=== PATIENT | female | born 1965 | race Caucasian/White ===

== ENCOUNTER 2024-08-01 14:15 | Outpatient (AMB) | payer OTHER, SELFPAY ==
[2024-08-01 14:46] VITALS: BP 104/74; PULSE 115; RESP 19; TEMP 36.2; O2SAT 97; BMI 45.0
--- NOTE | 2024-08-01 14:46 | PD.ORTHCLVIS ---
Vital signs 08/01/24 14:46 Height 1.6 m Height Method Stated Weight 115.383 kg Weight Measurement Method Standing Scale BMI 45.0 BP 104/74 Blood Pressure Source Automatic Cuff Blood Pressure Location Right Upper Arm Position Sitting Respiration 19 Pulse 115 H Pulse Source Monitor Temp 97.2 F Temp Source Temporal Artery Scan Pulse Oximetry (%) 97 Oxygen Delivery Method Room Air Med/Allergies Allergies & Medications Allergies No Known Allergies Allergy (Unknown, Uncoded 08/01/24 14:48) Medication Reconciliation Unobtainable 06/15/23 [History Confirmed 08/01/24] Subjective Visit Visit for: follow up visit Immunization / Flu Flu Vaccine in the Last 12 Months: Yes Flu Vaccine Exclusion Criteria: Already Received History of Present Illness Chief complaint: 3 MONTH KNEE INJECTION Patient is a pleasant 57-year-old female with a BMI of 46.6 who presents today for follow-up of her right knee. We previously have been doing injections. She has had over 7 injections in each knee. She is not getting good relief with the injections anymore. She is failed conservative treatment including meloxicam, and over 7 injections. 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 Exam Exam Patient is in no acute distress and is cooperative with the examination today. Breathing is nonlabored. Patient has a normal mood and affect. The patient has a gait that is antalgic Bilateral extremities were evaluated and demonstrates sensation intact to light touch. Palpable pedal pulses are present. No significant edema is present. Bilateral hips were examined. The patient has no pain with log roll of the hips. Internal rotation to 30 degrees and external rotation to 30 degrees is painless. Negative FADIR. Left knee was examined today. The left knee is in reasonable alignment. Range of motion from 0-120 degrees. Knee is stable to varus and valgus as well as AP translation with <5mm. Patient has a negative McMurrays. There is no pain with patellofemoral compression and no crepitus noted. The knee is nontender to palpation. The right knee was also examined. The right knee is in neutral alignment. Range of motion from 5-1 10 degrees. Knee is stable to varus and valgus as well as AP translation with <5mm. Patient has a negative McMurrays. There is no pain with patellofemoral compression and no crepitus noted. The knee is tender to to palpation diffusely. X-rays were personally reviewed by me. Significant joint space narrowing is present medially. There is complete obliteration of the medial joint space Assessment and Plan Problem List (1) Arthritis of knee, right: Status: Acute Plan: Patient is a pleasant 57-year-old female with severe left knee osteoarthritis with a BMI of 45. We have asked her to lose weight to minimize for complications from surgery and she is lost 30 pounds. At this point, the pain is affecting her quality life and happiness. I thus consider total knee replacement is a reasonable option. Her right knee hurts more and we will thus start on the side. We will give her a left knee injection as well today. Will plan for surgery on the right side with a total knee replacement. She will need a cardiac clearance given her atrial fibrillation history that is apparently well-controlled The nature and purpose of the total knee replacement, alternative method(s) of treatment, the material risks involved, and the possibility of complications were fully explained to the patient. The patient does NOT have any of the following contraindications to TKA: - Active infection of the knee joint, OR - Active systemic bacteremia, OR - Active skin infection or open wound at surgical site, OR - Neuropathic arthritis, OR - Severe, rapidly progressive neurological disease, OR - Severe medical condition that makes risks of surgery outweigh the potential benefit The patient was told the most common risks and complications associated with a total knee replacement include, but are not limited to: blood clots in the leg, fatal pulmonary embolism, dislocation of the prosthesis, intraoperative and postoperative fractures of the femur or tibia, infection, failure of the prosthesis or grafting materials, complications from anesthesia, reactions to blood transfusions, postoperative leg length inequality, instability of the knee replacement, nerve damage or injury, vascular injury, delayed wound healing, infection, other injury or even . In addition, there are risks associated with anesthesia given during this operation. Also, the patient was told that after undergoing a total knee replacement there may still be persistent pain or disability. The patient was informed that the success of this operation in part depends upon the mechanical devices which are going to be implanted and that these devices can fail or malfunction, and may need to be repaired or replaced and there are no guarantees as to the longevity of this device or its parts and that it or its parts could fail prematurely. The patient was also notified that during the course of surgery, there may be a need to use bone graft from donors, and that any bone graft used will be carefully screened for communicable diseases, including AIDS, hepatitis, Christiano-Creutzfeldt, or other diseases, but despite the screening procedures, there is a small chance that they could contract one of these diseases. Finally, the patient was asked to follow completely and fully with all advice and recommended treatments, and that recovery and ultimate outcome are affected by their compliance with recommended treatment. We discussed the risks, benefits and treatment alternatives, and the patient is interested in proceeding with surgery. We will try to set this up as expeditiously as possible. Recommend knee cortisone injection as patient would like to proceed with conservative treatment at this time. The risks and benefits of the procedure were reviewed with the patient and patient gave verbal consent to continue with the procedure. Procedure: performed by Dr. Covarrubias Using sterile technique the left knee was thoroughly prepped with alcohol, and approximately 1 cc of Kenalog 40 mg/mL and 4 cc of 1% lidocaine was injected without resistance into the medial tibial femoral joint space. The patient tolerated the procedure. Peripheral weight 2 Office Procedures GNS Level of Care Nursing/Assessment Patient Status: Established Patient Nursing Assessment/Reassesment: Medication Reconciliation, Update PMH in EMR and Vital Signs Coordination of Care: Complex Care/Chronic Disease 5 or more, Education Complex Pt/Fam, Consent,records obtained, informed consent and Staff clarify orders Established Patient Charge Established Patient Point Assignment: 100 Established Patient Point Charge: EP Level 3 (80-115) Surgical Proc/IM SQ injection Major Surgical Procedure: Yes (KNEE INJECTION ) Past Medical History Past Medical History Have you ever been diagnosed with any of the following: Cardiology Problems Hypertension: No Respiratory Problems Smoking: No Smoking Cessation Counseling: No Smoking Exposure: No Tobacco Use: No
== END 2024-08-01 15:01 | disposition home or self-care (01) ==
LOC: HODSRG 14:15
PROVIDERS: PCP Family Medicine; Referring Provider Family Medicine; Supervising Provider Orthopaedic Surgery Adult Reconstructive Orthopaedic Surgery; Visit Provider Orthopaedic Surgery Adult Reconstructive Orthopaedic Surgery
DX: M17.0 Bilateral primary osteoarthritis of knee (principal)
CPT/HCPCS: 20610; 99213; J3301; J3490; G0463

== ENCOUNTER 2024-10-26 10:19 | Emergency (ER) | payer OTHER, SELFPAY ==
[2024-10-26] VITALS (11 sets, daily range): BP systolic 128–155; BP diastolic 79–96; PULSE 95–143; RESP 18–40; TEMP 36.2–36.9; O2SAT 94–100; BMI 45.7
--- NOTE | 2024-10-26 11:52 | EKG_ITS ---
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
--- NOTE | 2024-10-26 11:52 | XR_ITS ---
Examination: AP chest single view Technique one AP portable upright chest single view Exam date and time: October 26, 2024 1225 hours Comparison June 13, 2016 INDICATIONS: Chest pain shortness of breath today. FINDINGS: Normal heart size Retrocardiac gastric hernia No pneumonia or pulmonary edema Moderate osteopenia IMPRESSION: No pneumonia or pulmonary edema
--- NOTE | 2024-10-26 11:53 | PD.EDRME ---
Rapid Medical Screening Exam RME Arrival date/time: 10/26/24 10:19 59-year-old female presents to the emergency department with complaints of shortness of breath, history of A-fib has been sick for 1 week URI was sent over for x-ray possible pneumonia. I have greeted and performed a focused initial assessment of this patient. Initial appropriate labs ordered at this time. A comprehensive ED assessment and evaluation of the patient and analysis of all test and completion of medical decision making process will be conducted by additional ED provider. Chief Complaint: Shortness of Breath/Dyspnea Time Seen by Provider: 10/26/24 11:43
[2024-10-26] MEDS: LEVALBUTEROL RT 1.25 MG/0.5 ML NEBU INH (12:20)
[2024-10-26] MEDS: SODIUM CHLORIDE RT SOL 0.9% 3 ML NEBU INH ×2 (12:20→15:15)
[2024-10-26] MEDS: MethylPREDNISolone SOD SUCC 62.5 MG/ML 2ML VIAL 125 MG IVP (12:48)
[2024-10-26 13:21] LABS: Basophils # (Auto) 0.1 Thou/mm3 (0.0-0.2); Basophils % (Auto) 1 % (0-2.5); Eosinophils # (Auto) 0.2 Thou/mm3 (0.0-0.5); Eosinophils % (Auto) 2 % (0-10); Hematocrit 41.1 % (36.0-46.0); Hemoglobin 14.1 g/dL (12.0-16.0); Immature Granulocytes % (Auto) 1 % (0-0); Immature Granulocytes Auto 0.04 Thou/mm3 (0.00-0.00); Lymphocytes # (Auto) 3.2 Thou/mm3 (1.0-4.8); Lymphocytes % (Auto) 36 % (10-50); Mean Corpuscular HGB Conc 34.3 g/dl (31.0-37.0); Mean Corpuscular Hemoglobin 30.6 pg (25.0-35.0); Mean Corpuscular Volume 89 fL (80-100); Monocytes # (Auto) 0.6 Thou/mm3 (0.0-0.8); Monocytes % (Auto) 7 % (0-12); Neutrophils # (Auto) 4.7 Thou/mm3 (1.8-7.7); Neutrophils % (Auto) 54 % (37-80); Nucleated Red Blood Cell % 0 /100 WBC (0); Platelet Count 310 Thou/mm3 (140-440); RDW Standard Deviation 42.5 fL (36.4-46.3); Red Blood Count 4.61 Miln/mm3 (4.00-5.20); White Blood Count 8.8 Thou/mm3 (3.6-11.0)
[2024-10-26 13:40] LABS: Alanine Aminotransferase 19 U/L (10-49); Albumin, Serum 4.4 gm/dL (3.4-4.8); Albumin/Globulin Ratio 1.6 (1.2-2.2); Alkaline Phosphatase 89 U/L (46-116); Anion Gap 9 (7-16); Aspartate Amino Transferase 22 U/L (0-34); BUN/Creatinine Ratio 14 Ratio (12-20); Bilirubin,Total 0.7 mg/dL (0.3-1.2); Blood Urea Nitrogen 10 mg/dL (9-23); Calcium 11.6 mg/dL (8.3-10.6); Calcium (Corrected) 11.6 mg/dL (8.5-10.1); Carbon Dioxide 30.8 mMol/L (20.0-31.0); Chloride 100 mMol/L (98-107); Creatinine (Component) 0.7 mg/dL (0.6-1.3); Estimated Creatinine Clearance 101.8 mL/min (>60); Globulin 2.8 gm/dL (2.3-3.5); Glucose 90 mg/dL (74-106); Lipase 27 U/L (12-53); Osmolality,Calculated 278 (275-295); Potassium 3.3 mMol/L (3.4-5.1); Sodium 140 mMol/L (136-145); Total Protein 7.2 gm/dL (5.7-8.2); Troponin I < 0.002 ng/mL (0.0-0.045); eGFR > 60 See Note
[2024-10-26 13:43] LABS: INR 1.1 (0.9-1.3); Prothrombin Time 11.8 Seconds (9.0-12.2)
--- NOTE | 2024-10-26 13:43 | PD.EDURI ---
Upper Respiratory Inf. RME/HPI General Chief Complaint: Shortness of Breath/Dyspnea Stated Complaint: SEND BY PMD FOR PNEUMONIA Time Seen by Provider: 10/26/24 11:43 Arrival date/time: 10/26/24 10:19 RME / HPI RME / HPI Narrative: 10/26/24 10:19 59-year-old female presents to the emergency department with complaints of shortness of breath, history of A-fib has been sick for 1 week URI was sent over for x-ray possible pneumonia. I have greeted and performed a focused initial assessment of this patient. Initial appropriate labs ordered at this time. A comprehensive ED assessment and evaluation of the patient and analysis of all test and completion of medical decision making process will be conducted by additional ED provider. DR. HILLMAN MAIN ED EVALUATION 59 year old female with history of AFib and asthma presents to the ED for evaluation of cough beginning 1 week ago. Accompanied by wheezing, nasal congestion, shortness of breath, and fevers. Reports the cough keeps her up at night and states it remains unchanged through the day. Has taken cough medications without change. Denies giving herself any breathing treatments or using her inhalers. Patient states last took a 7-day course of Prednisone several months ago. Denies chest pain, abdominal, pain, n/v. Related Data Previous Rx's ?Medication ?Instructions ?Recorded fluticasone propionate 250 2 inh inhalation BID #60 ea 10/26/24 mcg/actuation blister powder for inhalation prednisone 50 mg tablet 50 mg PO QDAY #5 tabs 10/26/24 Allergies Allergy/AdvReac Type Severity Reaction Status Date / Time No Known Allergies Allergy Unknown Uncoded 10/26/24 10:21 Review of Systems Review of Systems Narrative Review of Systems: Gen: +fever, no weight loss EYES: No discharge, no visual changes, no pain HEENT: No ear pain, +congestion, no sore throat PULM: +shortness of breath, +cough, no congestion CV: No chest pain, no palpitations, no chest tightness GI: No nausea, no vomiting, no diarrhea, no pain, no constipation : No frequency, no urgency,? no dysuria Musc/skel: No joint pain, no back pain Skin: No rash, no ecchymosis, no lesions Neuro: No weakness, no headache Past Medical History Past Medical History CARDIAC: Negative Congestive Heart Failure or Hypertension RESPIRATORY: Negative Chronic Obstructive Pulmonary Disease (COPD), Smoking, Smoking Cessation Counseling, Smoking Exposure or Tobacco Use GENITOURINARY: Negative Renal Disease ENDOCRINE: Negative Diabetes Mellitus Type 1 or Diabetes Mellitus Type 2 Social History SMOKING STATUS: Never smoker ED Exam Narrative Physical exam: GENERAL APPEARANCE: AxOx4, nontoxic appearing HEENT: NC, AT. MMM. EOMI, clear conjunctiva, oropharynx clear. NECK: Supple without lymphadenopathy. No stiffness or restricted ROM. HEART: Normal rate and regular rhythm, normal S1/S1, no m/r/g LUNGS: Dumont expiratory wheezing, moving air well. No crackles are heard. ABDOMEN: Soft, nontender, nondistended with good bowel sounds heard. BACK: No midline C/T/L spine pain or deformity, No CVAT, no obvious deformity. EXTREMITIES: Without cyanosis, clubbing or edema. MUSCULOSKELETAL: FROM of all major joints, no chest tenderness NEUROLOGICAL: Grossly nonfocal. Alert and oriented, moving all 4 extremities. CN not formally tested but appear grossly intact. Skin: Warm and dry without any rash. Course Quality Measures none Orders Category Date Time Status Notch Machine Operator STAT Care 10/26/24 11:52 Active EKG (ED ONLY) *Do not use* NOW Care 10/26/24 11:52 Completed Insert IV STAT Care 10/26/24 11:52 Active EKG (ED Only) Stat Exams 10/26/24 11:52 Draft XR chest 1V portable Stat Exams 10/26/24 11:52 Completed B-Type Natriuretic Peptide Stat Lab 10/26/24 13:00 Completed Blood Culture (Lab) Stat Lab 10/26/24 12:53 Received CBC Stat Lab 10/26/24 13:00 Completed Comprehensive Metabolic Panel Stat Lab 10/26/24 13:00 Completed Lipase Stat Lab 10/26/24 13:00 Completed Magnesium Stat Lab 10/26/24 13:00 Completed Prothrombin Time with INR Stat Lab 10/26/24 13:00 Completed Troponin I Stat Lab 10/26/24 13:00 Completed ALBUTEROL RT 0.5ml [Proventil Rt 0.5ml] Med 10/26/24 14:51 Discontinued 2.5 mg INH X1 ONE ALBUTEROL RT 3ml [Proventil Rt 3ml] Med 10/26/24 13:40 Discontinued 2.5 mg INH X1 ONE Diltiazem [Cardizem] Med 10/26/24 13:40 Discontinued 60 mg PO X1 ONE Levalbuterol Rt [Xopenex Rt Nadine] Med 10/26/24 11:52 Discontinued 1.25 mg INH X1 ONE MethylPREDNISolone.* [SoluMEDROL Inj] Med 10/26/24 11:52 Discontinued 125 mg IVP X1 ONE Metoprolol Tartrate [Lopressor] Med 10/26/24 16:31 Discontinued 50 mg PO X1 ONE Sodium Chloride Rt Nadine 0.9% [NS Rt Nadine 0.9%] Med 10/26/24 11:52 Active 3 ml INH PRN PRN Sodium Chloride Rt Nadine 0.9% [NS Rt Nadine 0.9%] Med 10/26/24 14:51 Active 3 ml INH PRN PRN predniSONE Med 10/26/24 13:40 Discontinued 40 mg PO X1 ONE Reevaluation(s) Reevaluation #1: On reassessment after breathing treatment, patients heart rate is elevated in the 120's due to nebulizer treatment. However, patient is speaking in full sentences and in no respiratory distress. Patient has coarse rhonchi and dumont expiratory wheezing, no inspiratory wheezing. States she does not feel the wheezing has cleared however states she is always wheezing and feels she is at her baseline. Time: 14:45 Reevaluation #2: Improvement on reassessment after second breathing treatment. Patient on telemetry is AFib rate 130's. Will give Metropolol before she goes and send her home with steroids. We reviewed all the results, analysis, and treatment plans. Patient is amenable to discharge. Strict return precautions were outlined. Patient was discharged in stable condition. Time: 16:30 Vital Signs Vital signs: Vital Signs Temperature 97.7 F 10/26/24 11:52 Pulse Rate 106 H 10/26/24 11:52 Respiratory Rate 40 H 10/26/24 11:52 Blood Pressure 128/90 H 10/26/24 11:52 Pulse Oximetry (%) 97 10/26/24 11:52 Oxygen Delivery Method Room Air 10/26/24 11:52 Pulse ox is 97% on room air which is adequate. Upper Respiratory Infection MDM Narrative MDM Narrative:: Renata Pacheco am scribing for and in the presence of Dr. Hillman. Patient data External records reviewed:: [facility] previous records (I reviewed outpatient doctor visit from 08/01/2024) Clinical information provided by:: patient Social determinants that could affect healthcare access:: none Patient has the following chronic illnesses:: AFib, asthma How is presenting disease/condition affected by chronic disease/condition?: exacerbated by Evaluation data The following diagnostics were reviewed and interpreted by me:: lab results, radiology exam(s) and EKG tracing(s) (Atrial fibrillation ith RVR, rate 127, no STEMI. ) Lab and/or radiology exams considered but not ordered:: None Interpretation Summary: Ordering Physician: Walter [facility]Brie Date of Service: 10/26/24 Procedure(s): XR chest 1V portable Accession Number(s): [id number] cc: David Lagunas MD; Brenda Castaneda MD; Walter LincolnPR[facility]ENTERBrie Salguero~ Examination: AP chest single view Technique one AP portable upright chest single view Exam date and time: October 26, 2024 1225 hours Comparison June 13, 2016 INDICATIONS: Chest pain shortness of breath today. FINDINGS: Normal heart size Retrocardiac gastric hernia No pneumonia or pulmonary edema Moderate osteopenia IMPRESSION: No pneumonia or pulmonary edema Dictated By: David Lagunas MD Signed By: <Electronically signed by David Lagunas MD in OV> 10/26/24 1250 Medications / Prescriptions Medications or Prescriptions considered but not ordered:: None Medication administrations:: Medication Administration History Sodium Chloride (Sodium Chloride Rt Nadine 0.9% 3 Ml Nebu) 3 ml INH PRN PRN PRN Reason: SOLN Stop: 11/25/24 11:51 Last Admin: 10/26/24 15:15 Dose: 3 ml Documented By: Admin: 10/26/24 12:20 Dose: 3 ml Documented By: MR Sodium Chloride (Sodium Chloride Rt Nadine 0.9% 3 Ml Nebu) 3 ml INH PRN PRN PRN Reason: SOLN Stop: 11/25/24 14:50 Discontinued Medications Albuterol (Albuterol Rt 2.5 Mg/3 Ml Nebu) 2.5 mg INH X1 ONE Stop: 10/26/24 13:41 Last Admin: 10/26/24 14:17 Dose: 2.5 mg Documented By: Albuterol (Albuterol Rt 2.5 Mg/0.5 Ml Nebu) 2.5 mg INH X1 ONE Stop: 10/26/24 14:52 Last Admin: 10/26/24 15:15 Dose: 2.5 mg Documented By: Diltiazem HCl (Diltiazem 30 Mg Tablet) 60 mg PO X1 ONE Stop: 10/26/24 13:41 Last Admin: 10/26/24 15:08 Dose: 60 mg Documented By: CALVIN Levalbuterol HCl (Levalbuterol Rt 1.25 Mg/0.5 Ml Nebu) 1.25 mg INH X1 ONE Stop: 10/26/24 11:53 Last Admin: 10/26/24 12:20 Dose: 1.25 mg Documented By: Methylprednisolone Sodium Succinate (Methylprednisolone Sod Succ 62.5 Mg/Ml 2ml Vial) 125 mg IVP X1 ONE Stop: 10/26/24 11:53 Last Admin: 10/26/24 12:48 Dose: 125 mg Documented By: CALVIN Metoprolol Tartrate (Metoprolol Tartrate 25 Mg Tablet) 50 mg PO X1 ONE Stop: 10/26/24 16:32 Last Admin: 10/26/24 16:44 Dose: 50 mg Documented By: CALVIN Prednisone (Prednisone 20 Mg Tablet) 40 mg PO X1 ONE Stop: 10/26/24 13:41 Last Admin: 10/26/24 15:08 Dose: 40 mg Documented By: CALVIN See above Consultations Consultation(s) initiated? (list below): No Diagnosis Upper Respiratory Differential Diagnosis: upper respiratory infection, viral infection, bronchitis and other (Pneumonia ) Most likely diagnosis given after review of the tests above:: RAD Post-nasal drip Cough Atrial fibrillation Admission Indicated Admission indicated?: not indicated Admission Request Was there a request for admission?: No Disposition Plan Disposition Plan: Discharge Discharge Attestation Discharge Attestation: The patient and all family members were given an opportunity to ask questions and understood the discharge instructions. Discharge instructions specifically effects, indications for sooner follow up or return to the emergency department, and the expected course of current diagnosis. Patient condition: Stable Discharge Plan Plan Patient Disposition: HOME (Self Care) Prescriptions/Referrals Prescriptions/Med Rec: New prednisone 50 mg tablet 50 mg PO QDAY Qty: 5 0RF fluticasone propionate 250 mcg/actuation blister with device 2 inh inhalation BID Qty: 60 0RF No Action ropivacaine (PF) 2 mg/mL (0.2 %) solution 20 ml Infiltration X1 Qty: 20 0RF methylprednisolone acetate 80 mg/mL suspension 80 mg intra-articular X1 Qty: 1 0RF lidocaine HCl [Xylocaine] 10 mg/mL (1 %) solution 40 ml Infiltration X1 Qty: 40 0RF triamcinolone acetonide 40 mg/mL suspension 80 mg intra-articular X1 Qty: 2 0RF Referrals: Brenda Franco MD [Primary Care Provider] - In 1 week Problem List Clinical Impression: RAD (reactive airway disease) with wheezing, Post-nasal drip, Cough, Atrial fibrillation Patient/Caregiver Discharge Instructions Education Materials: ED Atrial Fibrillation, ED Inhaler Use Additional Instructions: You have been prescribed a new inhaler, it is a steroid maintenance medicine for your asthma. You should take 2 puffs every day. You can continue with your albuterol rescue treatments as needed for shortness of breath. Follow-up with your primary care doctor in 2 to 3 days for recheck. You can return to the emergency department sooner symptoms worsen or if you notice any new, concerning issues. Print Language: Bulgarian Stand Alone Forms: Clara Award Info., Patient Portal Info Letter
[2024-10-26] MEDS: ALBUTEROL RT 2.5 MG/3 ML NEBU INH (14:17)
[2024-10-26 14:21] LABS: B-Type Natriuretic Peptide 34 pg/mL (0-100)
[2024-10-26] MEDS: predniSONE 20 MG TABLET 40 MG PO (15:08)
[2024-10-26] MEDS: DILTIAZEM 30 MG TABLET 60 MG PO (15:08)
[2024-10-26] MEDS: ALBUTEROL RT 2.5 MG/0.5 ML NEBU INH (15:15)
[2024-10-26] MEDS: METOPROLOL TARTRATE 25 MG TABLET 50 MG PO (16:44)
== END 2024-10-26 18:02 | disposition home or self-care (01) ==
PROVIDERS: Nurse Practitioner Primary Care; Emergency Provider Emergency Medicine; PCP Family Medicine
DX: J45.909 Unspecified asthma, uncomplicated (principal); I48.91 Unspecified atrial fibrillation; R09.82 Postnasal drip
CPT/HCPCS: 36415; 71045; 80053; 83690; 83735; 83880; 84484; 85025; 85610; 87040; 93005; 94640; 96374; 99284; J2919; J7512; A9270

== ENCOUNTER 2024-11-10 14:30 | Outpatient (AMB) | payer OTHER, SELFPAY ==
--- NOTE | 2024-11-10 15:10 | ORTHONT_ITS ---
Vital signs 11/10/24 15:11 Height 1.57 m Height Method Stated Weight 114.05 kg Weight Measurement Method Standing Scale BMI 46.3 BP 117/79 Blood Pressure Source Automatic Cuff Blood Pressure Location Right Upper Arm Position Sitting Respiration 18 Pulse 100 Pulse Source Monitor Temp 97.3 F Temp Source Temporal Artery Scan Pulse Oximetry (%) 96 Oxygen Delivery Method Room Air Med/Allergies Allergies & Medications Allergies No Known Allergies Allergy (Unknown, Uncoded 11/10/24 15:13) Medication Reconciliation fluticasone propionate 250 mcg/actuation blister powder for inhalation 2 inh inhalation BID #60 ea 10/26/24 [Rx Confirmed 11/10/24] prednisone 50 mg tablet 50 mg PO QDAY #5 tabs 10/26/24 [Rx Confirmed 11/10/24] Exam Exam Patient is in no acute distress and is cooperative with the examination today. Breathing is nonlabored. Patient has a normal mood and affect. The patient has a gait that is antalgic Bilateral extremities were evaluated and demonstrates sensation intact to light touch. Palpable pedal pulses are present. No significant edema is present. Bilateral hips were examined. The patient has no pain with log roll of the hips. Internal rotation to 30 degrees and external rotation to 30 degrees is painless. Negative FADIR. Left knee was examined today. The left knee is in reasonable alignment. Range of motion from 0-120 degrees. Knee is stable to varus and valgus as well as AP translation with <5mm. Patient has a negative McMurrays. There is no pain with patellofemoral compression and no crepitus noted. The knee is nontender to palpation. The right knee was also examined. The right knee is in neutral alignment. Range of motion from 5-1 10 degrees. Knee is stable to varus and valgus as well as AP translation with <5mm. Patient has a negative McMurrays. There is no pain with patellofemoral compression and no crepitus noted. The knee is tender to to palpation diffusely. X-rays were personally reviewed by me. Significant joint space narrowing is present medially. There is complete obliteration of the medial joint space Assessment and Plan Problem List (1) Arthritis of knee, right: Status: Acute Plan: Patient is a pleasant 57-year-old female with severe left knee osteoarthritis with a BMI of 45. We have asked her to lose weight to minimize for complications from surgery and she is lost 30 pounds. At this point, the pain is affecting her quality life and happiness. I thus consider total knee replacement is a reasonable option. Her right knee hurts more and we will thus start on the side. We will give her a left knee injection as well today. Will plan for surgery on the right side with a total knee replacement. She has received her cardiac clearance. The nature and purpose of the total knee replacement, alternative method(s) of treatment, the material risks involved, and the possibility of complications were fully explained to the patient. The patient does NOT have any of the following contraindications to TKA: - Active infection of the knee joint, OR - Active systemic bacteremia, OR - Active skin infection or open wound at surgical site, OR - Neuropathic arthritis, OR - Severe, rapidly progressive neurological disease, OR - Severe medical condition that makes risks of surgery outweigh the potential benefit The patient was told the most common risks and complications associated with a total knee replacement include, but are not limited to: blood clots in the leg, fatal pulmonary embolism, dislocation of the prosthesis, intraoperative and postoperative fractures of the femur or tibia, infection, failure of the prosthesis or grafting materials, complications from anesthesia, reactions to blood transfusions, postoperative leg length inequality, instability of the knee replacement, nerve damage or injury, vascular injury, delayed wound healing, infection, other injury or even . In addition, there are risks associated with anesthesia given during this operation. Also, the patient was told that after undergoing a total knee replacement there may still be persistent pain or disability. The patient was informed that the success of this operation in part depends upon the mechanical devices which are going to be implanted and that these devices can fail or malfunction, and may need to be repaired or replaced and there are no guarantees as to the longevity of this device or its parts and that it or its parts could fail prematurely. The patient was also notified that during the course of surgery, there may be a need to use bone graft from donors, and that any bone graft used will be carefully screened for communicable diseases, including AIDS, hepatitis, Christiano-Creutzfeldt, or other diseases, but despite the screening procedures, there is a small chance that they could contract one of these diseases. Finally, the patient was asked to follow completely and fully with all advice and recommended treatments, and that recovery and ultimate outcome are affected by their compliance with recommended treatment. We discussed the risks, benefits and treatment alternatives, and the patient is interested in proceeding with surgery. We will try to set this up as expeditiously as possible. Recommend knee cortisone injection as patient would like to proceed with conservative treatment at this time. The risks and benefits of the procedure were reviewed with the patient and patient gave verbal consent to continue with the procedure. Procedure: performed by Dr. Covarrubias Using sterile technique the left knee was thoroughly prepped with alcohol, and approximately 1 cc of Kenalog 40 mg/mL and 4 cc of 1% lidocaine was injected without resistance into the medial tibial femoral joint space. The patient tolerated the procedure. 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 Procedures GNS Level of Care Nursing/Assessment Patient Status: Established Patient Nursing Assessment/Reassesment: Medication Reconciliation, Update PMH in EMR and Vital Signs Coordination of Care: Complex Care and Chronic Disease 1-5, Education Complex Pt/Fam, Consent,records obtained, informed consent, Results/Orders obtained and Staff clarify orders Established Patient Charge Established Patient Point Assignment: 95 Established Patient Point Charge: EP Level 3 (80-115) Surgical Proc/IM SQ injection Major Surgical Procedure: Yes MA Intake Visit Data Collection New Patient or Established: Established Patient (seen at [facility] within 3 years) Reason for Visit:: KNEE INJECTION Seen by Clinical Staff ONLY (RN/MA): No Verbal consent obtained for Telemed visit?: No Green Marketer Required: No PCP or OBGYN visit in last 3 months: Yes Hx Now: No Do You Feel Safe at Home: Yes Authorities Contacted: N/A Questionairres Past Medical History Past Medical History Have you ever been diagnosed with any of the following: Cardiology Problems Congestive Heart Failure: No Hypertension: No Respiratory Problems Chronic Obstructive Pulmonary Disease (COPD): No Smoking: No Smoking Cessation Counseling: No Smoking Exposure: No Tobacco Use: No Genital/Urinary Problems Renal Disease: No Endocrine Problems Diabetes Mellitus Type 1: No Diabetes Mellitus Type 2: No Subjective Visit Visit for: follow up visit, knee and injections Immunization / Flu Flu Vaccine in the Last 12 Months: No Flu Vaccine Exclusion Criteria: No Exclusion Criteria History of Present Illness Chief complaint: Right knee pain Kay is a pleasant 59-year-old female with right knee pain and right knee arthritis. We has given her injections in the past. She would like to get knee surgery near February. We discussed weight loss in great detail and she has been trying to lose weight Pain Pain level (0-10): 8 Pain duration: ALL DAY Pain location: outside (lateral) and anterior Pain quality: sharp, dull and aching Pain timing: increases with activity Associated signs & symptoms: stiffness Ambulatory data Ambulatory device: none Treatments Improvement with previous injections: No Improvement with PT: No Improvement with NSAIDS: no Review of Systems Review of Systems: All systems negative unless otherwise noted in HPI.
[2024-11-10 15:11] VITALS: BP 117/79; PULSE 100; RESP 18; TEMP 36.3; O2SAT 96; BMI 46.3
== END 2024-11-10 15:38 | disposition home or self-care (01) ==
PROVIDERS: PCP Family Medicine; Referring Provider Family Medicine; Supervising Provider Orthopaedic Surgery Adult Reconstructive Orthopaedic Surgery; Visit Provider Orthopaedic Surgery Adult Reconstructive Orthopaedic Surgery
DX: M25.561 Pain in right knee (principal); M17.11 Unilateral primary osteoarthritis, right knee
CPT/HCPCS: 20610; 99213; J3301; J3490; G0463

== ENCOUNTER 2025-02-01 14:21 | Outpatient (AMB) | payer OTHER, SELFPAY ==
[2025-02-01 14:59] VITALS: BP 117/83; PULSE 116; RESP 18; TEMP 36.7; O2SAT 92; BMI 46.0
--- NOTE | 2025-02-01 14:59 | PD.ORTHCLVIS ---
Vital signs 02/01/25 14:59 Height 1.57 m Height Method Stated Weight 113.483 kg Weight Measurement Method Standing Scale BMI 46.0 BP 117/83 Blood Pressure Source Automatic Cuff Blood Pressure Location Right Upper Arm Position Sitting Respiration 18 Pulse 116 H Pulse Source Monitor Temp 98.0 F Temp Source Temporal Artery Scan Pulse Oximetry (%) 92 L Oxygen Delivery Method Room Air Med/Allergies Allergies & Medications Allergies No Known Allergies Allergy (Unknown, Uncoded 02/01/25 15:00) Medication Reconciliation fluticasone propionate 250 mcg/actuation blister powder for inhalation 2 inh inhalation BID #60 ea 10/26/24 [Rx Confirmed 02/01/25] prednisone 50 mg tablet 50 mg PO QDAY #5 tabs 10/26/24 [Rx Confirmed 02/01/25] Exam Exam Patient is in no acute distress and is cooperative with the examination today. Breathing is nonlabored. Patient has a normal mood and affect. The patient has a gait that is antalgic Bilateral extremities were evaluated and demonstrates sensation intact to light touch. Palpable pedal pulses are present. No significant edema is present. Bilateral hips were examined. The patient has no pain with log roll of the hips. Internal rotation to 30 degrees and external rotation to 30 degrees is painless. Negative FADIR. Left knee was examined today. The left knee is in reasonable alignment. Range of motion from 0-120 degrees. Knee is stable to varus and valgus as well as AP translation with <5mm. Patient has a negative McMurrays. There is no pain with patellofemoral compression and no crepitus noted. The knee is nontender to palpation. The right knee was also examined. The right knee is in neutral alignment. Range of motion from 5-1 10 degrees. Knee is stable to varus and valgus as well as AP translation with <5mm. Patient has a negative McMurrays. There is no pain with patellofemoral compression and no crepitus noted. The knee is tender to to palpation diffusely. X-rays were personally reviewed by me. Significant joint space narrowing is present medially. There is complete obliteration of the medial joint space Assessment and Plan Problem List (1) Arthritis of knee, right: Status: Acute Plan: Patient is a pleasant 57-year-old female with severe left knee osteoarthritis with a BMI of 45. We have asked her to lose weight to minimize for complications from surgery and she has lost 30 pounds. At this point, the pain is affecting her quality life and happiness. I thus consider total knee replacement is a reasonable option. Her right knee hurts more and we will thus start on the side. We will give her a left knee injection as well today. Will plan for surgery on the right side with a total knee replacement. We have received her cardiac clearance. The nature and purpose of the total knee replacement, alternative method(s) of treatment, the material risks involved, and the possibility of complications were fully explained to the patient. The patient does NOT have any of the following contraindications to TKA: - Active infection of the knee joint, OR - Active systemic bacteremia, OR - Active skin infection or open wound at surgical site, OR - Neuropathic arthritis, OR - Severe, rapidly progressive neurological disease, OR - Severe medical condition that makes risks of surgery outweigh the potential benefit The patient was told the most common risks and complications associated with a total knee replacement include, but are not limited to: blood clots in the leg, fatal pulmonary embolism, dislocation of the prosthesis, intraoperative and postoperative fractures of the femur or tibia, infection, failure of the prosthesis or grafting materials, complications from anesthesia, reactions to blood transfusions, postoperative leg length inequality, instability of the knee replacement, nerve damage or injury, vascular injury, delayed wound healing, infection, other injury or even . In addition, there are risks associated with anesthesia given during this operation. Also, the patient was told that after undergoing a total knee replacement there may still be persistent pain or disability. The patient was informed that the success of this operation in part depends upon the mechanical devices which are going to be implanted and that these devices can fail or malfunction, and may need to be repaired or replaced and there are no guarantees as to the longevity of this device or its parts and that it or its parts could fail prematurely. The patient was also notified that during the course of surgery, there may be a need to use bone graft from donors, and that any bone graft used will be carefully screened for communicable diseases, including AIDS, hepatitis, Christiano-Creutzfeldt, or other diseases, but despite the screening procedures, there is a small chance that they could contract one of these diseases. Finally, the patient was asked to follow completely and fully with all advice and recommended treatments, and that recovery and ultimate outcome are affected by their compliance with recommended treatment. We discussed the risks, benefits and treatment alternatives, and the patient is interested in proceeding with surgery. We will try to set this up as expeditiously as possible. Recommend knee cortisone injection as patient would like to proceed with conservative treatment at this time. The risks and benefits of the procedure were reviewed with the patient and patient gave verbal consent to continue with the procedure. Procedure: performed by Dr. Covarrubias Using sterile technique the left knee was thoroughly prepped with alcohol, and approximately 1 cc of Kenalog 40 mg/mL and 4 cc of 1% lidocaine was injected without resistance into the medial tibial femoral joint space. The patient tolerated the procedure. Office Procedures GNS Level of Care Nursing/Assessment Patient Status: Established Patient Nursing Assessment/Reassesment: Medication Reconciliation, Update PMH in EMR and Vital Signs Coordination of Care: Complex Care and Chronic Disease 1-5, Education Complex Pt/Fam, Consent,records obtained, informed consent, Results/Orders obtained and Staff clarify orders Established Patient Charge Established Patient Point Assignment: 95 Established Patient Point Charge: EP Level 3 (80-115) Surgical Proc/IM SQ injection Major Surgical Procedure: Yes (LEFT KNEE INJECTION) Medication Given Medication Given Medication Given: Yes Documented Dose Given: 4 Route: Infiitration Medication Given Medication Given Medication Given: Yes Documented Dose Given: 1 Route: Infiitration Office Meds Xylocaine 10 mg/mL (1 %) injection solution Performing Provider: Mic Covarrubias MD Performing Location: [facility] Administered by: Mic Covarrubias MD on 02/01/25 15:23 Dose Route Admin Location Dispensed Lot Number Expiration Date [facility] Public Policy Manager 20 mL Infiltration 20 mL [id number] 01/04/28 98830-322-82 [facility] triamcinolone acetonide 40 mg/mL suspension for injection Performing Provider: Mic Covarrubias MD Performing Location: [facility] Administered by: Mic Covarrubias MD on 02/01/25 15:23 Dose Route Admin Location Dispensed Lot Number Expiration Date [facility] Public Policy Manager 40 mg intra-articular KNEE 1 mL [id number] 09/04/26 1276-2828-75 [employer]EVA PARENTERAL MA Intake Visit Data Collection New Patient or Established: Established Patient (seen at [facility] within 3 years) Reason for Visit:: KNEE PAIN FOLLOW UP Seen by Clinical Staff ONLY (RN/MA): No Verbal consent obtained for Telemed visit?: No Cardiac Nurse Required: No PCP or OBGYN visit in last 3 months: Yes Hx Now: No Do You Feel Safe at Home: Yes Authorities Contacted: N/A Questionairres Past Medical History Past Medical History Have you ever been diagnosed with any of the following: Cardiology Problems Congestive Heart Failure: No Hypertension: No Respiratory Problems Chronic Obstructive Pulmonary Disease (COPD): No Smoking: No Smoking Cessation Counseling: No Smoking Exposure: No Tobacco Use: No Genital/Urinary Problems Renal Disease: No Endocrine Problems Diabetes Mellitus Type 1: No Diabetes Mellitus Type 2: No Subjective Visit Visit for: follow up visit and knee Immunization / Flu Flu Vaccine in the Last 12 Months: No Flu Vaccine Exclusion Criteria: No Exclusion Criteria History of Present Illness Chief complaint: FOLLOW UP KNEE PAIN Kay is a pleasant 59-year-old female with right knee pain and right knee arthritis. We has given her injections in the past. We have done over 10 injections. We have also tried meloxicam, knee brace, and she has lost over 20 pounds. 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
== END 2025-02-01 15:25 | disposition home or self-care (01) ==
LOC: HODSRG 14:21
PROVIDERS: PCP Family Medicine; Referring Provider Family Medicine; Supervising Provider Orthopaedic Surgery Adult Reconstructive Orthopaedic Surgery; Visit Provider Orthopaedic Surgery Adult Reconstructive Orthopaedic Surgery
DX: M17.12 Unilateral primary osteoarthritis, left knee (principal)
CPT/HCPCS: 20610; 99213; J3301; J3490; G0463

== ENCOUNTER → 2025-02-22 | Outpatient (CLI) | payer OTHER, SELFPAY ==
[2025-02-22 11:42] LABS: Basophils # (Auto) 0.1 Thou/mm3 (0.0-0.2); Basophils % (Auto) 1 % (0-2.5); Eosinophils # (Auto) 0.2 Thou/mm3 (0.0-0.5); Eosinophils % (Auto) 2 % (0-10); Hematocrit 40.8 % (36.0-46.0); Hemoglobin 13.5 g/dL (12.0-16.0); Immature Granulocytes % (Auto) 0 % (0-0); Immature Granulocytes Auto 0.02 Thou/mm3 (0.00-0.00); Lymphocytes # (Auto) 2.1 Thou/mm3 (1.0-4.8); Lymphocytes % (Auto) 27 % (10-50); Mean Corpuscular HGB Conc 33.1 g/dl (31.0-37.0); Mean Corpuscular Hemoglobin 29.6 pg (25.0-35.0); Mean Corpuscular Volume 90 fL (80-100); Monocytes # (Auto) 0.4 Thou/mm3 (0.0-0.8); Monocytes % (Auto) 5 % (0-12); Neutrophils # (Auto) 5.1 Thou/mm3 (1.8-7.7); Neutrophils % (Auto) 65 % (37-80); Nucleated Red Blood Cell % 0 /100 WBC (0); Platelet Count 348 Thou/mm3 (140-440); RDW Standard Deviation 42.5 fL (36.4-46.3); Red Blood Count 4.56 Miln/mm3 (4.00-5.20); White Blood Count 7.9 Thou/mm3 (3.6-11.0)
[2025-02-22 11:54] LABS: Glucose Estimated Average 120 mg/dL (80-131); Hemoglobin A1C 5.8 % Hgb (4.8-6.0)
[2025-02-22 12:12] LABS: Alanine Aminotransferase 16 U/L (10-49); Albumin, Serum 4.6 gm/dL (3.4-4.8); Albumin/Globulin Ratio 2.3 (1.2-2.2); Alkaline Phosphatase 77 U/L (46-116); Anion Gap 7 (7-16); Aspartate Amino Transferase 17 U/L (0-34); BUN/Creatinine Ratio 13 Ratio (12-20); Bilirubin,Total 0.7 mg/dL (0.3-1.2); Blood Urea Nitrogen 10 mg/dL (9-23); Calcium 11.6 mg/dL (8.3-10.6); Calcium (Corrected) 11.6 mg/dL (8.5-10.1); Carbon Dioxide 29.9 mMol/L (20.0-31.0); Chloride 101 mMol/L (98-107); Creatinine (Component) 0.8 mg/dL (0.6-1.3); Glucose 95 mg/dL (74-106); Osmolality,Calculated 274 (275-295); Potassium 4.2 mMol/L (3.4-5.1); Sodium 138 mMol/L (136-145); Thyroid Stimulating Hormone 2.66 uIU/mL (0.55-4.78); Total Protein 6.6 gm/dL (5.7-8.2); eGFR > 60 See Note
[2025-02-22 12:30] LABS: Cardiac Risk Estimate 4.5 RATIO (3.7-5.6); Cholesterol 191 mg/dL (132-200); HDL Cholesterol 42 mg/dL (40-60); LDL Cholesterol,Calculated 112 mg/dL (0-130); Triglycerides 183 mg/dL (30-150)
== END | disposition home or self-care (01) ==
PROVIDERS: PCP Family Medicine; Referring Provider Family Medicine; Visit Provider Family Medicine
DX: E11.9 Type 2 diabetes mellitus without complications (principal); I10 Essential (primary) hypertension
CPT/HCPCS: 36415; 80053; 80061; 83036; 84443; 85025; 85610

== ENCOUNTER 2025-03-15 13:48 | Outpatient (AMB) | payer OTHER, SELFPAY ==
[2025-03-15 14:37] VITALS: BP 133/84; PULSE 90; RESP 18; TEMP 36.3; O2SAT 94; BMI 46.5
--- NOTE | 2025-03-15 14:37 | ORTHONT_ITS ---
Vital signs 03/15/25 14:37 Height 1.57 m Height Method Stated Weight 115.383 kg Weight Measurement Method Standing Scale BMI 46.5 BP 133/84 H Blood Pressure Source Automatic Cuff Blood Pressure Location Left Upper Arm Position Sitting Respiration 18 Pulse 90 Pulse Source Monitor Temp 97.3 F Temp Source Temporal Artery Scan Pulse Oximetry (%) 94 L Oxygen Delivery Method Room Air Med/Allergies Allergies & Medications Allergies No Known Allergies Allergy (Unknown, Uncoded 03/15/25 14:40) Medication Reconciliation fluticasone propionate 250 mcg/actuation blister powder for inhalation 2 inh inhalation BID #60 ea 10/26/24 [Rx Confirmed 03/15/25] prednisone 50 mg tablet 50 mg PO QDAY #5 tabs 10/26/24 [Rx Confirmed 03/15/25] Exam Exam Patient is in no acute distress and is cooperative with the examination today. Breathing is nonlabored. Patient has a normal mood and affect. The patient has a gait that is antalgic Bilateral extremities were evaluated and demonstrates sensation intact to light touch. Palpable pedal pulses are present. No significant edema is present. Bilateral hips were examined. The patient has no pain with log roll of the hips. Internal rotation to 30 degrees and external rotation to 30 degrees is painless. Negative FADIR. Left knee was examined today. The left knee is in reasonable alignment. Range of motion from 0-120 degrees. Knee is stable to varus and valgus as well as AP translation with <5mm. Patient has a negative McMurrays. There is no pain with patellofemoral compression and no crepitus noted. The knee is nontender to palpation. The right knee was also examined. The right knee is in neutral alignment. Range of motion from 5-1 10 degrees. Knee is stable to varus and valgus as well as AP translation with <5mm. Patient has a negative McMurrays. There is no pain with patellofemoral compression and no crepitus noted. The knee is tender to to palpation diffusely. X-rays were personally reviewed by me. Significant joint space narrowing is present medially. There is complete obliteration of the medial joint space Assessment and Plan Problem List (1) Arthritis of knee, right: Status: Acute Plan: Patient is a pleasant 57-year-old female with severe left knee osteoarthritis with a BMI of 45. We have asked her to lose weight to minimize for complications from surgery and she has lost 30 pounds. At this point, the pain is affecting her quality life and happiness. I thus consider total knee replacement is a reasonable option. Her right knee hurts more and we will thus start on the side. We will give her a left knee injection as well today. We will plan for surgery on the right side with a total knee replacement. We have received her cardiac clearance. The nature and purpose of the total knee replacement, alternative method(s) of treatment, the material risks involved, and the possibility of complications were fully explained to the patient. The patient does NOT have any of the following contraindications to TKA: - Active infection of the knee joint, OR - Active systemic bacteremia, OR - Active skin infection or open wound at surgical site, OR - Neuropathic arthritis, OR - Severe, rapidly progressive neurological disease, OR - Severe medical condition that makes risks of surgery outweigh the potential benefit The patient was told the most common risks and complications associated with a total knee replacement include, but are not limited to: blood clots in the leg, fatal pulmonary embolism, dislocation of the prosthesis, intraoperative and postoperative fractures of the femur or tibia, infection, failure of the prosthesis or grafting materials, complications from anesthesia, reactions to blood transfusions, postoperative leg length inequality, instability of the knee replacement, nerve damage or injury, vascular injury, delayed wound healing, infection, other injury or even . In addition, there are risks associated with anesthesia given during this operation. Also, the patient was told that after undergoing a total knee replacement there may still be persistent pain or disability. The patient was informed that the success of this operation in part depends upon the mechanical devices which are going to be implanted and that these devices can fail or malfunction, and may need to be repaired or replaced and there are no guarantees as to the longevity of this device or its parts and that it or its parts could fail prematurely. The patient was also notified that during the course of surgery, there may be a need to use bone graft from donors, and that any bone graft used will be carefully screened for communicable diseases, including AIDS, hepatitis, Christiano-Creutzfeldt, or other diseases, but despite the screening procedures, there is a small chance that they could contract one of these diseases. Finally, the patient was asked to follow completely and fully with all advice and recommended treatments, and that recovery and ultimate outcome are affected by their compliance with recommended treatment. We discussed the risks, benefits and treatment alternatives, and the patient is interested in proceeding with surgery. We will try to set this up as expeditiously as possible. Office Procedures GNS Level of Care Nursing/Assessment Patient Status: Established Patient Nursing Assessment/Reassesment: Medication Reconciliation, Update PMH in EMR and Vital Signs Coordination of Care: Complex Care and Chronic Disease 1-5, Education Complex Pt/Fam, Consent,records obtained, informed consent, Results/Orders obtained and Staff clarify orders Established Patient Charge Established Patient Point Assignment: 95 Established Patient Point Charge: EP Level 3 (80-115) MA Intake Visit Data Collection New Patient or Established: Established Patient (seen at [facility] within 3 years) Reason for Visit:: PRE OP R TKA Seen by Clinical Staff ONLY (RN/MA): No PCP or OBGYN visit in last 3 months: Yes Hx Now: No Do You Feel Safe at Home: Yes Authorities Contacted: N/A Questionairres Past Medical History Past Medical History Have you ever been diagnosed with any of the following: Cardiology Problems Congestive Heart Failure: No Hypertension: No Respiratory Problems Chronic Obstructive Pulmonary Disease (COPD): No Smoking: No Smoking Cessation Counseling: No Smoking Exposure: No Tobacco Use: No Genital/Urinary Problems Renal Disease: No Endocrine Problems Diabetes Mellitus Type 1: No Diabetes Mellitus Type 2: No Subjective Visit Visit for: follow up visit, knee and other (specify) (WALKER GIVEN FOR SX) Immunization / Flu Flu Vaccine in the Last 12 Months: No Flu Vaccine Exclusion Criteria: No Exclusion Criteria History of Present Illness Chief complaint: FOLLOW UP KNEE PAIN Kay is a pleasant 59-year-old female with right knee pain and right knee arthritis. We has given her injections in the past. We have done over 10 injections. We have also tried meloxicam, knee brace, and she has lost over 20 pounds. 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
== END 2025-03-15 14:45 | disposition home or self-care (01) ==
LOC: HODSRG 13:48
PROVIDERS: PCP Family Medicine; Referring Provider Family Medicine; Supervising Provider Orthopaedic Surgery Adult Reconstructive Orthopaedic Surgery; Visit Provider Orthopaedic Surgery Adult Reconstructive Orthopaedic Surgery
DX: M17.11 Unilateral primary osteoarthritis, right knee (principal); M25.561 Pain in right knee
CPT/HCPCS: 99213; G0463

== ENCOUNTER → 2025-03-20 | Outpatient (CLI) | payer OTHER, SELFPAY ==
--- NOTE | 2025-03-20 12:00 | XR_ITS ---
Examination: CT right lower extremity, without contrast. 2-D sagittal reconstructions. 2-D coronal reconstructions. 3-D reconstructions. Date and time of exam:March 20, 2025 1146 hours INDICATIONS: Diagnosis unilateral primary osteoarthritis right knee, right knee pain 10 years CTDI: vol (mGy):16.3 DLP: (mGycm):1225 Technique: Multiple 1.25 mm axial sections of the right lower extremity without intravenous contrast have been obtained. 2-D sagittal and coronal reconstructions have been obtained. 3-D reconstructions have been obtained. Low dose protocols were performed. One or more of the following dose reduction techniques were used; automated exposure control, adjustment of the mA and/or KV according to patient size, use of iterative reconstruction technique. 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
== END | disposition home or self-care (01) ==
PROVIDERS: PCP Family Medicine; Referring Provider Orthopaedic Surgery Adult Reconstructive Orthopaedic Surgery; Visit Provider Orthopaedic Surgery Adult Reconstructive Orthopaedic Surgery
DX: M17.11 Unilateral primary osteoarthritis, right knee (principal)
CPT/HCPCS: 73700

== ENCOUNTER 2025-03-26 06:45 | Day surgery (SDC) | payer OTHER, SELFPAY ==
[2025-03-23 09:26] VITALS: BMI 45.8
[2025-03-23 11:59] LABS: Basophils # (Auto) 0.1 Thou/mm3 (0.0-0.2); Basophils % (Auto) 1 % (0-2.5); Eosinophils # (Auto) 0.2 Thou/mm3 (0.0-0.5); Eosinophils % (Auto) 2 % (0-10); Hematocrit 42.9 % (36.0-46.0); Hemoglobin 14.0 g/dL (12.0-16.0); Immature Granulocytes Auto 0.04 Thou/mm3 (0.00-0.00); Lymphocytes # (Auto) 2.2 Thou/mm3 (1.0-4.8); Lymphocytes % (Auto) 21 % (10-50); Mean Corpuscular HGB Conc 32.6 g/dl (31.0-37.0); Mean Corpuscular Hemoglobin 29.7 pg (25.0-35.0); Mean Corpuscular Volume 91 fL (80-100); Monocytes # (Auto) 0.7 Thou/mm3 (0.0-0.8); Monocytes % (Auto) 7 % (0-12); Neutrophils # (Auto) 7.5 Thou/mm3 (1.8-7.7); Neutrophils % (Auto) 70 % (37-80); Nucleated Red Blood Cell # 0.00 Thou/mm3 (0.00-0.00); Nucleated Red Blood Cell % 0 /100 WBC (0); Platelet Count 353 Thou/mm3 (140-440); RDW Standard Deviation 44.0 fL (36.4-46.3); Red Blood Count 4.72 Miln/mm3 (4.00-5.20); White Blood Count 10.7 Thou/mm3 (3.6-11.0)
[2025-03-23 12:25] LABS: Alanine Aminotransferase 14 U/L (10-49); Albumin, Serum 4.7 gm/dL (3.4-4.8); Albumin/Globulin Ratio 1.8 (1.2-2.2); Alkaline Phosphatase 82 U/L (46-116); Anion Gap 12 (7-16); Aspartate Amino Transferase 16 U/L (0-34); BUN/Creatinine Ratio 19 Ratio (12-20); Bilirubin,Total 0.5 mg/dL (0.3-1.2); Blood Urea Nitrogen 15 mg/dL (9-23); Calcium 11.3 mg/dL (8.3-10.6); Calcium (Corrected) 11.3 mg/dL (8.5-10.1); Carbon Dioxide 28.7 mMol/L (20.0-31.0); Chloride 101 mMol/L (98-107); Creatinine (Component) 0.8 mg/dL (0.6-1.3); Estimated Creatinine Clearance 92.5 mL/min (>60); Globulin 2.6 gm/dL (2.3-3.5); Glucose 81 mg/dL (74-106); Osmolality,Calculated 282 (275-295); Potassium 3.9 mMol/L (3.4-5.1); Sodium 142 mMol/L (136-145); Total Protein 7.3 gm/dL (5.7-8.2); eGFR > 60 See Note
[2025-03-23 12:38] LABS: INR 1.0 (0.9-1.3); Partial Thromboplastin Time 27.5 Seconds (22.0-36.0); Prothrombin Time 10.8 Seconds (9.0-12.2)
[2025-03-26] VITALS (19 sets, daily range): BP systolic 93–148; BP diastolic 59–100; PULSE 86–107; RESP 12–22; TEMP 36.2–36.8; O2SAT 94–98; BMI 45.7; BMI 13.0
--- NOTE | 2025-03-26 07:22 | SUR.PREOP ---
Patient expressed gratitude for prayer before their procedure.
[2025-03-26] MEDS: MELOXICAM 7.5 MG TABLET PO (07:38)
[2025-03-26] MEDS: PREGABALIN 75 MG CAPSULE PO (07:38)
[2025-03-26] MEDS: ACETAMINOPHEN 325 MG TABLET 650 MG PO (07:38)
[2025-03-26] MEDS: RINGERS LACTATED 1000 ML 1,000 ML 20 ML IV (07:39)
--- NOTE | 2025-03-26 07:45 | SUR.PREOP ---
Patient expressed gratitude for prayer before their procedure.
--- NOTE | 2025-03-26 10:41 | XR_ITS ---
Examination: Right knee 2 views TECHNIQUE: AP lateral right knee 2 views Date and time: March 26, 2025 1143 hours INDICATIONS: Postop knee replacement today. FINDINGS: Total right knee arthroplasty. Satisfactory alignment Prominent osteopenia. IMPRESSION: Total right knee arthroplasty with satisfactory alignment
--- NOTE | 2025-03-26 10:55 | SUR.PHASEI ---
pt received from OR in recovery bay 7. pt asleep but responds to voice, breathing unlabored on oxymask 6l. v/s stable. pt dressing to right lower extremity cdi. report received from Kerry KOLB and Dr. Fu.
[2025-03-26] MEDS: ONDANSETRON INJ 2 MG/ML INJ 2 ML 4 MG IVP (11:09)
[2025-03-26] MEDS: METOCLOPRAMIDE INJ 5 MG/ML VIAL 2 ML 10 MG IVP (11:36)
--- NOTE | 2025-03-26 12:20 | SUR.PHASEII ---
pt able to tolerate oral fluids without difficulty swallowing or nausea/vomiting.
--- NOTE | 2025-03-26 12:57 | SUR.PHASEII ---
Received report on pt. s/p right TKA from Julio KOLB. Pt. is resting, VSS, no c/o pain or nausea at this time. Dressing to right knee CDI, pedal pulses present darryl., cap refill <3 seconds. Pt.'s at bedside.
[2025-03-26] MEDS: HYDROmorphone INJ 2 MG/ML VIAL 0.4 MG IVP (13:30)
[2025-03-26] MEDS: ACETAMINOPHEN IVPB 1,000 MG/100 ML VIAL 250 MG IV (13:34)
--- NOTE | 2025-03-26 16:14 | SUR.PHASEII ---
1614 report received from Julio RN, patient resting comfortably in [facility] on oxygen 1L via nasal canula, breathing unlabored, vital signs stable, per patient her pain is tolerable, dressing intact; no bleeding noted, denies nausea
--- NOTE | 2025-03-26 16:40 | SUR.PHASEII ---
1640 Patient meets discharge criteria from recovery, awake and alert, breathing unlabored, vital signs stable, dressing intact; no bleeding noted, per patient he pain is tolerable, drinking fluids; denies nausea, voided in the restroom, assisted with dressing into her clothing by this senior technical writer, discharge instructions given by previous nurse to patient and patients , signed discharge instructions. Patient given all her belongings prior to discharge, transported via wheelchair and left in a private vehicle.
--- NOTE | 2025-04-10 11:31 | ESOP_ITS ---
Date of Procedure 03/26/25 Pre Op Diagnosis right knee osteoarthritis Post Op Diagnosis right knee osteoarthritis Procedure right total knee replacement Findings full thickness cartilage loss and osteophytes Procedure Description Indication: The patient is a 59 year old who has a long history of right knee pain. X-rays show degenerative arthritis involving the knee. Over the past several years the patient has had increasing pain, progressive limitation in function. He has failed conservative measures including activity modification, physical therapy, injections, anti-inflammatories, and assistive devices. After a lengthy discussion of the risks and benefits, the patient presents now for total knee replacement. The nature and purpose of the total knee replacement, alternative method(s) of treatment, the material risks involved, and the possibility of complications were fully explained to the patient. The patient was told the most common risks and complications associated with a total knee replacement include, but are not limited to blood clots in the leg, fatal pulmonary embolism, dislocation of the prosthesis, intraoperative and postoperative fractures of the femur or tibia, infection, failure of the prosthesis or grafting materials, complications from anesthesia, reactions to blood transfusions, postoperative leg length inequality, instability of the knee replacement, nerve damage or injury, vascular injury, delayed wound healing, infections, other injury or even . In addition, there are risks associated with anesthesia given during this operation, temporary or permanent numbness on the skin lateral to the incision can be a complication unique to total knee surgery, and kneeling can be painful after knee replacement surgery. Also, the patient was told that after undergoing a total knee replacement there may still be pain or disability. We discussed with the patient that we will be using a robot-assisted technology. We discussed that there is a possibility of converting to manual instrumentation. The patient was informed that the success of this operation in part depends upon the mechanical devices which are going to be implanted and that these devices can fail or malfunction, and may need to be repaired or replaced and there are no guarantees as to the longevity of this device or its part and that it or its parts could fail prematurely. Finally, the patient was asked to follow completely and fully with all advice and recommended treatments, and that recovery and ultimate outcome are affected by their compliance with recommended treatment. Surgical technique: Patient was marked and consented in the pre-operative area. The patient was brought to the operating room and placed on the operating table in a supine position. Prior to positioning, a timeout procedure was performed between the surgeon, the anesthesiologist, and the nursing staff where the patient and the operative side were identified and confirmed. After adequate general anesthetic was obtained, the right lower extremity was prepped and draped in the usual sterile fashion. A weight based dose of Cefazolin were administered within 1 hour prior to incision. The robot was preregistered and calirated before the incision. The extremity was exsanguinated with an esmarch badge and tourniquet inflated to 250mmHg. A midline incision was made. A median parapatellar arthrotomy was made. The patella was subluxed laterally. A medial release was performed to expose the medial tibia. His femoral and tibial pins were placed through an intra incisional manner for both cases. Every effort was made to ensure that the distalmost aspect of the pin was hung in the second cortex. The arrays were then tightened several times to ensure that it was fixed for the remainder of the case. Both femoral and tibial checkpoints were then placed. We then went through the registration process of the bone. We then assessed the knee deformity and attempted to correct it. We also used the robot to aid in judging laxity in both extension and flexion. Final based on laxity and alignment we changed the preoperative assessment to obtain proper proper implant positioning and to correct deformity. Attention was then placed to the tibia. We made a tibial cut using the robot ensuring that both the MCL and the patella tendon were protected with retractors. We then went to the femur and made the posterior cut followed by the anterior cut and the anterior chamfer. The bone was then removed and we made a distal femur cut and a posterior chamfer cut. We verified all cuts. A trial reduction was performed with a size 4 femoral component and a size 4 keeled tibial component. The patella tracked centrally, and no lateral retinacular release was necessary. The trial implants were removed. The arrays, pins, and checkpoints were all removed. We performed a verification that all pins were removed. The cut bone surfaces were lavaged. A size 4 right femoral component, a size 4 keeled tibial component were impacted into position. The knee was felt to be well balanced in the sagittal and coronal plane. The final 4x12 mm cruciate- substituting articular insert was impacted into the tibial tray. The knee was brought out to full extension, flexed up to 120 degrees. It was stable to varus and valgus stress and appropriately balanced in flexion and extension. The wounds were copiously irrigated following deflation of tourniquet. The medial retinaculum was reapproximated with #1 vicryl and quill. The subcutaneous tissues were closed with 0 and 2-0 interrupted Vicryl. The skin was closed with 3-0 Monofilament V loc suture. A sterile dressing was applied. The patient was transferred to a bed and brought to recovery in stable condition. The patient tolerated the procedure well. There were no intraoperative complications. Sponge and needle counts were correct times 2. As the attending surgeon, I florencia I was present and performed the entire operation. Grafts/Implants Size 4 CR Femur Size 45 Tibia 12mm poly CS Anesthesia none Implants cristina Pathology / specimen None Pathology comment: none Estimated Blood Loss 150 Condition Stable Disposition same day Surgeon Mic Covarrubias MD Surgical Staff Operation Date: 03/26/25 10:15 Case Staff Anesthesiologist: Lloyd Fu RN First Assistant: Lashay Maher
== END 2025-03-26 16:40 | disposition home or self-care (01) ==
PROVIDERS: Anesthesiology; PCP Family Medicine; Referring Provider Orthopaedic Surgery Adult Reconstructive Orthopaedic Surgery; Visit Provider Orthopaedic Surgery Adult Reconstructive Orthopaedic Surgery
PROC: (CPT 27447; principal; 2025-03-26 10:00)
DX: M17.11 Unilateral primary osteoarthritis, right knee (principal)
CPT/HCPCS: 27447; 20985; 36415; 73560; 80053; 85025; 85610; 85730; 97162; A4217; C1713; C1776; J0131; J0690; J1100; J1171; J1885; J2405; J2704; J2765; J3490; J7120; J7999; A4648; A4649; A9270; J1920

== ENCOUNTER 2025-04-10 14:45 | Outpatient (AMB) | payer OTHER, SELFPAY ==
--- NOTE | 2025-04-10 15:18 | PD.ORTHCLVIS ---
Vital signs 04/10/25 15:22 Height 1.6 m Height Method Stated Weight 113.937 kg Weight Measurement Method Standing Scale BMI 44.5 BP 139/93 H Blood Pressure Source Automatic Cuff Blood Pressure Location Left Upper Arm Position Sitting Respiration 18 Pulse 84 Pulse Source Monitor Temp 97.6 F Temp Source Temporal Artery Scan Pulse Oximetry (%) 94 L Oxygen Delivery Method Room Air Med/Allergies Allergies & Medications Allergies No Known Allergies Allergy (Verified 04/10/25 15:23) Medication Reconciliation apixaban 5 mg tablet (Eliquis) 5 mg PO DAILY 03/23/25 [History Confirmed 04/10/25] Held on 03/26/25. Instructions: Resume on 03/26/25. hold eliquis 5mg and take 2.5mg bid for 2 weeks then resume full dose diltiazem HCl 180 mg capsule,extended release 24 hr 180 mg PO Q24H 03/23/25 [History Confirmed 04/10/25] lisinopril 20 mg-hydrochlorothiazide 25 mg tablet 1 tab PO DAILY 03/23/25 [History Confirmed 04/10/25] meloxicam 7.5 mg tablet 7.5 mg PO DAILY 03/23/25 [History Confirmed 04/10/25] nebivolol 10 mg tablet 10 mg PO DAILY 03/23/25 [History Confirmed 04/10/25] acetaminophen 500 mg tablet (Acetaminophen Extra Strength) 1,000 mg (2 x 500 mg) PO Q6H PRN pain #90 tabs 03/26/25 [Rx Confirmed 04/10/25] doxycycline hyclate 100 mg tablet 100 mg PO BID #14 tabs 03/26/25 [Rx Confirmed 04/10/25] gabapentin 300 mg capsule 300 mg PO .qhs #30 caps 03/26/25 [Rx Confirmed 04/10/25] oxycodone 5 mg tablet 5 mg PO Q6H PRN pain #28 tabs 03/26/25 [Rx Confirmed 04/10/25] sennosides 8.6 mg-docusate sodium 50 mg tablet (Senna-S) 1 tab-cap PO QDAY #30 tabs 03/26/25 [Rx Confirmed 04/10/25] Exam Exam AAOx3 NAD Incision C/D?/I Assessment and Plan Problem List (1) Arthritis of knee, right: Status: Acute Plan: Patient is a pleasant 57-year-old female with severe left knee osteoarthritis s/p L TKA. She is doing well and pain is controlled - start pt - followup in 2 weeks Office Procedures GNS Level of Care Nursing/Assessment Patient Status: Established Patient Nursing Assessment/Reassesment: Medication Reconciliation, Update PMH in EMR and Vital Signs Coordination of Care: Complex Care and Chronic Disease 1-5, Education Complex Pt/Fam, Consent,records obtained, informed consent, Results/Orders obtained and Staff clarify orders Established Patient Charge Established Patient Point Assignment: 95 Established Patient Point Charge: EP Level 3 (80-115) MA Intake Visit Data Collection New Patient or Established: Established Patient (seen at [facility] within 3 years) Reason for Visit:: 2 WEEK R TKA Seen by Clinical Staff ONLY (RN/MA): No PCP or OBGYN visit in last 3 months: Yes Hx Now: No Do You Feel Safe at Home: Yes Authorities Contacted: N/A Questionairres Past Medical History Past Medical History Have you ever been diagnosed with any of the following: Neurological Problems Seizures: No Cardiology Problems Atrial Fibrillation: Yes Congestive Heart Failure: No Hypertension: No Respiratory Problems Chronic Obstructive Pulmonary Disease (COPD): No Asthma: Yes Smoking: No Smoking Cessation Counseling: No Smoking Exposure: No Tobacco Use: No Stomache/Intestinal Problems Hepatitis: No Obesity: Yes Genital/Urinary Problems Renal Disease: No Reproductive Problems Previous Pregnancies: Yes Musculoskeletal Problems Arthritis: Yes Endocrine Problems Diabetes Mellitus Type 1: No Diabetes Mellitus Type 2: No Other Problems Hospitalization: Yes (surgery) Shingles: No Blood Transfusions: No Anesthesia Reactions: No Chicken Pox: Yes Measles: Yes Mumps: Yes Cancer: No Subjective Visit Visit for: follow up visit, post op #1 and knee Immunization / Flu Flu Vaccine in the Last 12 Months: No Flu Vaccine Exclusion Criteria: No Exclusion Criteria History of Present Illness Chief complaint: FOLLOW UP KNEE PAIN Kay is a pleasant 59-year-old female with right knee pain and right knee arthritis. She is pod14 from a tka and is doing well Pain Pain level (0-10): 9 Pain duration: ON AND OFF Pain location: anterior Pain quality: sharp Pain timing: increases with activity Associated signs & symptoms: stiffness Ambulatory data Ambulatory device: walker Treatments Number of previous injections: 3 Improvement with previous injections: No Improvement with PT: No Improvement with NSAIDS: no Review of Systems Review of Systems: All systems negative unless otherwise noted in HPI.
[2025-04-10 15:22] VITALS: BP 139/93; PULSE 84; RESP 18; TEMP 36.4; O2SAT 94; BMI 44.5
== END 2025-04-10 15:37 | disposition home or self-care (01) ==
PROVIDERS: PCP Family Medicine; Referring Provider Family Medicine; Supervising Provider Orthopaedic Surgery Adult Reconstructive Orthopaedic Surgery; Visit Provider Orthopaedic Surgery Adult Reconstructive Orthopaedic Surgery
DX: M17.0 Bilateral primary osteoarthritis of knee (principal); M25.561 Pain in right knee; Z96.652 Presence of left artificial knee joint; I48.91 Unspecified atrial fibrillation; E66.9 Obesity, unspecified; Z68.41 Body mass index [BMI] 40.0-44.9, adult
CPT/HCPCS: 99213; G0463

== ENCOUNTER 2025-05-15 14:47 | Outpatient (AMB) | payer OTHER, SELFPAY ==
--- NOTE | 2025-05-15 15:12 | PD.ORTHCLVIS ---
Vital signs 05/15/25 15:13 Height 1.6 m Height Method Stated Weight 112.151 kg Weight Measurement Method Standing Scale BMI 43.8 BP 140/83 H Blood Pressure Source Automatic Cuff Blood Pressure Location Left Upper Arm Position Sitting Respiration 18 Pulse 88 Pulse Source Monitor Temp 97.4 F Temp Source Temporal Artery Scan Pulse Oximetry (%) 96 Oxygen Delivery Method Room Air Med/Allergies Allergies & Medications Allergies No Known Allergies Allergy (Verified 05/15/25 15:12) Medication Reconciliation apixaban 5 mg tablet (Eliquis) 5 mg PO DAILY 03/23/25 [History Confirmed 05/15/25] Held on 03/26/25. Instructions: Resume on 03/26/25. hold eliquis 5mg and take 2.5mg bid for 2 weeks then resume full dose diltiazem HCl 180 mg capsule,extended release 24 hr 180 mg PO Q24H 03/23/25 [History Confirmed 05/15/25] lisinopril 20 mg-hydrochlorothiazide 25 mg tablet 1 tab PO DAILY 03/23/25 [History Confirmed 05/15/25] meloxicam 7.5 mg tablet 7.5 mg PO DAILY 03/23/25 [History Confirmed 05/15/25] nebivolol 10 mg tablet 10 mg PO DAILY 03/23/25 [History Confirmed 05/15/25] acetaminophen 500 mg tablet (Acetaminophen Extra Strength) 1,000 mg (2 x 500 mg) PO Q6H PRN pain #90 tabs 03/26/25 [Rx Confirmed 05/15/25] doxycycline hyclate 100 mg tablet 100 mg PO BID #14 tabs 03/26/25 [Rx Confirmed 05/15/25] gabapentin 300 mg capsule 300 mg PO .qhs #30 caps 03/26/25 [Rx Confirmed 05/15/25] oxycodone 5 mg tablet 5 mg PO Q6H PRN pain #28 tabs 03/26/25 [Rx Confirmed 05/15/25] sennosides 8.6 mg-docusate sodium 50 mg tablet (Senna-S) 1 tab-cap PO QDAY #30 tabs 03/26/25 [Rx Confirmed 05/15/25] oxycodone 5 mg tablet 5 mg PO Q6H PRN pain #28 tabs 04/25/25 [Rx Confirmed 05/15/25] Exam Exam AAOx3 NAD Incision C/D/I range of motion is 0 to 105 degrees. Her knee feels stable varus about stress was AP translation Assessment and Plan Problem List (1) Arthritis of knee, right: Status: Acute Plan: Patient is a pleasant 57-year-old female with severe left knee osteoarthritis s/p L TKA. She is doing well and pain is controlled Plan Patient is doing well and we will see her in 4 weeks for routine follow-up. Office Procedures GNS Level of Care Nursing/Assessment Patient Status: Established Patient Nursing Assessment/Reassesment: Medication Reconciliation, Update PMH in EMR and Vital Signs Coordination of Care: Complex Care and Chronic Disease 1-5, Education Complex Pt/Fam, Consent,records obtained, informed consent, Results/Orders obtained and Staff clarify orders Established Patient Charge Established Patient Point Assignment: 95 Established Patient Point Charge: EP Level 3 (80-115) MA Intake Visit Data Collection New Patient or Established: Established Patient (seen at [facility] within 3 years) Reason for Visit:: 4 WEEK R TKA Seen by Clinical Staff ONLY (RN/MA): No PCP or OBGYN visit in last 3 months: Yes Hx Now: No Do You Feel Safe at Home: Yes Authorities Contacted: N/A Questionairres Past Medical History Past Medical History Have you ever been diagnosed with any of the following: Neurological Problems Seizures: No Cardiology Problems Atrial Fibrillation: Yes Congestive Heart Failure: No Hypertension: Yes Respiratory Problems Chronic Obstructive Pulmonary Disease (COPD): No Asthma: Yes Smoking: No Smoking Cessation Counseling: No Smoking Exposure: No Tobacco Use: No Stomache/Intestinal Problems Hepatitis: No Obesity: Yes Genital/Urinary Problems Renal Disease: No Reproductive Problems Previous Pregnancies: Yes Musculoskeletal Problems Arthritis: Yes Endocrine Problems Diabetes Mellitus Type 1: No Diabetes Mellitus Type 2: No Other Problems Hospitalization: Yes (surgery) Shingles: No Blood Transfusions: No Anesthesia Reactions: No Chicken Pox: Yes Measles: Yes Mumps: Yes Cancer: No Subjective Visit Visit for: follow up visit, post op #2 and knee Immunization / Flu Flu Vaccine in the Last 12 Months: No Flu Vaccine Exclusion Criteria: No Exclusion Criteria History of Present Illness Chief complaint: FOLLOW UP KNEE PAIN Patient is a pleasant 59-year-old female who is 6 weeks status post right total knee replacement. She is doing well. Her pain is controlled. Pain Pain level (0-10): 2 Pain duration: ON AND OFF Pain location: anterior Pain quality: aching Associated signs & symptoms: numbness Ambulatory data Ambulatory device: walker Treatments Number of previous injections: 3 Improvement with previous injections: No Improvement with PT: No Improvement with NSAIDS: no Review of Systems Review of Systems: All systems negative unless otherwise noted in HPI.
[2025-05-15 15:13] VITALS: BP 140/83; PULSE 88; RESP 18; TEMP 36.3; O2SAT 96; BMI 43.8
--- NOTE | 2025-05-15 15:13 | XR_ITS ---
Examination: Bilateral knees 2 views Right lateral knee left lateral knee 2 views Bilateral axial knees single view TECHNIQUE: Bilateral AP knees standing single view, bilateral PA knees standing flexion single view Standing right lateral knee left lateral knee 2 views Bilateral axial knees single view Date and time: May 15, 2025 1534 hours INDICATIONS: Right knee replacement March 2025, left knee pain several months FINDINGS: Significant osteopenia Total right knee arthroplasty. Satisfactory alignment No loosening of the prosthetic components Severe narrowing medial joint space left knee Significant osteoarthritis lateral and patellofemoral joints IMPRESSION: Severe narrowing medial joint space left knee Significant osteoarthritis lateral patellofemoral joints left knee
== END 2025-05-15 15:16 | disposition home or self-care (01) ==
LOC: HODSRG 14:47
PROVIDERS: PCP Family Medicine; Referring Provider Family Medicine; Supervising Provider Orthopaedic Surgery Adult Reconstructive Orthopaedic Surgery; Visit Provider Orthopaedic Surgery Adult Reconstructive Orthopaedic Surgery
DX: M17.0 Bilateral primary osteoarthritis of knee (principal); Z96.652 Presence of left artificial knee joint; I10 Essential (primary) hypertension; I48.91 Unspecified atrial fibrillation; E66.9 Obesity, unspecified; Z68.41 Body mass index [BMI] 40.0-44.9, adult
CPT/HCPCS: 73564; 99213; G0463

== ENCOUNTER → 2025-06-20 | Outpatient (CLI) | payer BC, SELFPAY ==
[2025-06-20 11:20] LABS: Anion Gap 9 (7-16); BUN/Creatinine Ratio 13 Ratio (12-20); Blood Urea Nitrogen 9 mg/dL (9-23); Calcium 11.3 mg/dL (8.3-10.6); Carbon Dioxide 27.5 mMol/L (20.0-31.0); Chloride 103 mMol/L (98-107); Creatinine (Component) 0.7 mg/dL (0.6-1.3); Glucose 100 mg/dL (74-106); Glucose Estimated Average 126 mg/dL (80-131); Hemoglobin A1C 6.0 % Hgb (4.8-6.0); Osmolality,Calculated 276 (275-295); Potassium 3.9 mMol/L (3.4-5.1); Sodium 139 mMol/L (136-145); eGFR > 60 See Note
== END | disposition home or self-care (01) ==
LOC: COPL 10:21
PROVIDERS: PCP Family Medicine; Referring Provider Family Medicine; Visit Provider Family Medicine
DX: I10 Essential (primary) hypertension (principal); E11.9 Type 2 diabetes mellitus without complications
CPT/HCPCS: 36415; 80048; 83036

== ENCOUNTER 2025-07-19 14:24 | Outpatient (AMB) | payer BC, SELFPAY ==
--- NOTE | 2025-07-19 14:31 | ORTHONT_ITS ---
Vital signs 07/19/25 14:32 Height 1.6 m Height Method Measured Weight 113.852 kg Weight Measurement Method Standing Scale BMI 44.4 BP 129/83 Blood Pressure Source Automatic Cuff Blood Pressure Location Left Upper Arm Position Sitting Respiration 18 Pulse 80 Pulse Source Monitor Temp 96.8 F Temp Source Temporal Artery Scan Pulse Oximetry (%) 96 Oxygen Delivery Method Room Air Med/Allergies Allergies & Medications Allergies No Known Allergies Allergy (Verified 07/19/25 14:33) Medication Reconciliation apixaban 5 mg tablet (Eliquis) 5 mg PO DAILY 03/23/25 [History Confirmed 07/19/25] Held on 03/26/25. Instructions: Resume on 03/26/25. hold eliquis 5mg and take 2.5mg bid for 2 weeks then resume full dose diltiazem HCl 180 mg capsule,extended release 24 hr 180 mg PO Q24H 03/23/25 [History Confirmed 07/19/25] lisinopril 20 mg-hydrochlorothiazide 25 mg tablet 1 tab PO DAILY 03/23/25 [History Confirmed 07/19/25] meloxicam 7.5 mg tablet 7.5 mg PO DAILY 03/23/25 [History Confirmed 07/19/25] nebivolol 10 mg tablet 10 mg PO DAILY 03/23/25 [History Confirmed 07/19/25] acetaminophen 500 mg tablet (Acetaminophen Extra Strength) 1,000 mg (2 x 500 mg) PO Q6H PRN pain #90 tabs 03/26/25 [Rx Confirmed 07/19/25] doxycycline hyclate 100 mg tablet 100 mg PO BID #14 tabs 03/26/25 [Rx Confirmed 07/19/25] gabapentin 300 mg capsule 300 mg PO .qhs #30 caps 03/26/25 [Rx Confirmed 07/19/25] oxycodone 5 mg tablet 5 mg PO Q6H PRN pain #28 tabs 03/26/25 [Rx Confirmed 07/19/25] sennosides 8.6 mg-docusate sodium 50 mg tablet (Senna-S) 1 tab-cap PO QDAY #30 tabs 03/26/25 [Rx Confirmed 07/19/25] oxycodone 5 mg tablet 5 mg PO Q6H PRN pain #28 tabs 04/25/25 [Rx Confirmed 07/19/25] Exam Exam AAOx3 NAD Incision C/D/I range of motion is 0 to 105 degrees. Her knee feels stable varus and valgus stress as well as AP translation. Left knee is tender to palpation medially. Range of motion 0 to 105 degrees X-rays demonstrates a cementless right total knee replacement in good alignment position. She is severe arthritis with complete obliteration of the medial joint space on the left Assessment and Plan Problem List (1) Arthritis of knee, right: Status: Acute Plan: Patient is a pleasant 57-year-old female with severe left knee osteoarthritis s/p R TKA. She is doing well and pain is controlled. She would like a left knee cortisone injection today Recommend knee cortisone injection as patient would like to proceed with conservative treatment at this time. The risks and benefits of the procedure were reviewed with the patient and patient gave verbal consent to continue with the procedure. Procedure: performed by Dr. Covarrubias Using sterile technique the left knee was thoroughly prepped with alcohol, and approximately 1 cc of Depo-Medrol 80mg/mL and 4 cc of 0.2% ropivacaine was injected without resistance into the medial tibial femoral joint space. The patient tolerated the procedure. Plan Patient is doing well and we will see her in 8-12 weeks for routine follow-up. Office Procedures GNS Level of Care Nursing/Assessment Patient Status: Established Patient Nursing Assessment/Reassesment: Medication Reconciliation, Update PMH in EMR and Vital Signs Coordination of Care: Complex Care and Chronic Disease 1-5, Education Complex Pt/Fam, Consent,records obtained, informed consent, Results/Orders obtained and Staff clarify orders Established Patient Charge Established Patient Point Assignment: 95 Established Patient Point Charge: EP Level 3 (80-115) Surgical Proc/IM SQ injection Minor Surgical Procedure: Yes (KNEE INJECTION) Medication Given Medication Given Medication Given: Yes Documented Dose Given: 1 Route: Infiitration Medication Given Medication Given Medication Given: Yes Documented Dose Given: 4 Route: Infiitration Office Meds methylprednisolone acetate 80 mg/mL suspension for injection Performing Provider: Mic Covarrubias MD Performing Location: [facility] Administered by: Mic Covarrubias MD on 07/19/25 14:50 Dose Route Admin Location Dispensed Lot Number Expiration Date Pack age [facility] [employer] 80 mg intra-articular KNEE 1 mL [id number] 04/05/27 [address]-1 [id number] [employer] ropivacaine (PF) 2 mg/mL (0.2 %) injection solution Performing Provider: Mic Covarrubias MD Performing Location: [facility] Administered by: Mic Covarrubias MD on 07/19/25 14:50 Dose Route Admin Location Dispensed Lot Number Expiration Date Pack age [facility] [employer] 20 mL Infiltration KNEE 20 mL [id number] 10/06/27 86986-781-01 [id number] [facility] Intake Visit Data Collection New Patient or Established: Established Patient (seen at [facility] within 3 years) Reason for Visit:: TKA F/U IMAGING Seen by Clinical Staff ONLY (RN/MA): No Agency Recruiter Required: No PCP or OBGYN visit in last 3 months: Yes Hx Now: No Do You Feel Safe at Home: Yes Authorities Contacted: N/A Questionairres Past Medical History Past Medical History Have you ever been diagnosed with any of the following: Neurological Problems Seizures: No Cardiology Problems Atrial Fibrillation: Yes Congestive Heart Failure: No Hypertension: Yes Respiratory Problems Chronic Obstructive Pulmonary Disease (COPD): No Asthma: Yes Smoking: No Smoking Cessation Counseling: No Smoking Exposure: No Tobacco Use: No Stomache/Intestinal Problems Hepatitis: No Obesity: Yes Genital/Urinary Problems Renal Disease: No Reproductive Problems Previous Pregnancies: Yes Musculoskeletal Problems Arthritis: Yes Endocrine Problems Diabetes Mellitus Type 1: No Diabetes Mellitus Type 2: No Other Problems Hospitalization: Yes (surgery) Shingles: No Blood Transfusions: No Anesthesia Reactions: No Chicken Pox: Yes Measles: Yes Mumps: Yes Cancer: No Subjective Visit Visit for: follow up visit and knee Immunization / Flu Flu Vaccine in the Last 12 Months: No Flu Vaccine Exclusion Criteria: No Exclusion Criteria History of Present Illness Chief complaint: TKA F/U IMAGING Patient is a pleasant 59-year-old female who is 12 weeks status post right total knee replacement. She is doing well. Her pain is controlled. She reports that she is still living limited and cannot stand for 6 hours straight Which is what her job requires. The right knee pain is significantly better than the left side Personal History Red flag PMH: none Pain Pain level (0-10): 2 Pain duration: ON AND OFF Pain location: anterior Pain quality: aching Associated signs & symptoms: numbness Ambulatory data Ambulatory device: walker Treatments Number of previous injections: 3 Improvement with previous injections: No Improvement with PT: No Improvement with NSAIDS: no Review of Systems Review of Systems: All systems negative unless otherwise noted in HPI.
[2025-07-19 14:32] VITALS: BP 129/83; PULSE 80; RESP 18; TEMP 36; O2SAT 96; BMI 44.4
== END 2025-07-19 15:01 | disposition home or self-care (01) ==
PROVIDERS: PCP Family Medicine; Referring Provider Family Medicine; Supervising Provider Orthopaedic Surgery Adult Reconstructive Orthopaedic Surgery; Visit Provider Orthopaedic Surgery Adult Reconstructive Orthopaedic Surgery
DX: M17.12 Unilateral primary osteoarthritis, left knee (principal)
CPT/HCPCS: 20610; 99213; J1010; J2795; G0463